=== PATIENT | female | born 1965 ===

== ENCOUNTER 2021-07-26 18:09 | Emergency (ER) | payer SELFPAY ==
[~2021-07-26] VITALS: Ht 160 cm; Wt 59.0 kg
--- NOTE | 2021-07-26 18:12 | NUR ---
Pt brought back into room 4B by job recruiter. Pt is AAOx4, pt is quite cade, grimmy, and desheveled from being on the streets. Oxygenting and perfusing well, VSS, PE WNL, denies any pain or discomfort. Denies any dizziness, nausea, lightheadedness, black out or LOC. No s/sx of distress present.
--- NOTE | 2021-07-26 18:15 | NUR ---
At pt bedside to assess pt. Pt given warm blanket and 2 cups of ice water per pt request. awaiting EDMD Dr. Lyons to come eval pt. Pt has pleasant demeanor and energetic atitude.
--- NOTE | 2021-07-26 19:31 | NUR ---
EDMD just completed DC instruction and ordered pt DCed from ED and to follow up with a PMD from the [facility].
== END 2021-07-26 19:31 | disposition home or self-care (01) ==
LOC: ER 18:14
DX: S09.90XA Unspecified injury of head, initial encounter (principal); Y04.2XXA Assault by strike against or bumped into by another person, initial encounter; Y92.410 Unspecified street and highway as the place of occurrence of the external cause; Z88.6 Allergy status to analgesic agent; Z88.0 Allergy status to penicillin; Z59.00 Homelessness unspecified
CPT/HCPCS: A4663